=== PATIENT | male | born 1975 | race Caucasian/White ===

== ENCOUNTER 2022-10-11 11:42 | Emergency (ER) | payer OTHER ==
[2022-10-11] MEDS ORDERED: Bacitracin Oint 1 GM U/D Packet TOP ONE (12:08)
== END 2022-10-11 12:30 | disposition home or self-care (01) ==
LOC: DL.ED 11:42
DX: S80.12XA Contusion of left lower leg, initial encounter (principal); Z88.2 Allergy status to sulfonamides; W17.89XA Other fall from one level to another, initial encounter
CPT/HCPCS: 73590-LT; 99283